=== PATIENT | male | born 1965 | race Caucasian/White ===

== ENCOUNTER → 2020-11-26 13:42 | Outpatient (CLI) | payer OTHER, SELFPAY ==
[2020-11-26 13:58] LABS: Basophils % 0.6 % (0.1-2.0); Eosinophils # 0.1 K/mm3 (0.0-0.4); Eosinophils % 1.3 % (0.1-12.0); Hematocrit 43.9 % (42.0-52.0); Hemoglobin 14.4 g/dL (14.1-18.0); Lymphocytes # 1.3 K/mm3 (0.7-4.5); Lymphocytes % 25.4 % (10-50); Mean Corpuscular HGB Conc 32.8 g/dL (31.8-35.4); Mean Corpuscular Hemoglobin 29.7 pg (27.0-31.2); Mean Corpuscular Volume 90.5 fl (80-94); Monocytes # 0.3 K/mm3 (0.1-1.0); Monocytes % 5.1 % (1.7-9.3); Neutrophils # 3.5 K/mm3 (1.8-7.8); Neutrophils % 67.5 % (37.0-80.0); Platelet Count 356 K/mm3 (142-424); Red Blood Count 4.85 M/mm3 (4.60-6.20); White Blood Count 5.2 K/mm3 (4.8-10.8)
[2020-11-26 14:30] LABS: Chloride 103 mmol/L (98-107); Sodium 140 mmol/L (136-145)
[2020-11-26 14:32] LABS: Blood Urea Nitrogen 22 mg/dl (9-20); Estimated Glomerular Filt Rate 52 ml/min (>60); GFR (African American) 63 ML/MIN (>60)
[2020-11-26 14:33] LABS: Alanine Aminotransferase 33 U/L (12-78); Albumin Level 4.8 g/dl (3.5-5.0); Albumin/Globulin Ratio 1.9 (1.1-1.8); Alkaline Phosphatase 54 U/L (38-126); Aspartate Amino Transferase 31 U/L (17-59); Bilirubin,Total 0.6 mg/dl (0.2-1.3); Calcium 10.1 mg/dl (8.4-10.2); Carbon Dioxide 27 mmol/L (22.0-30.0); Cholesterol 127 mg/dl (140-200); Globulin 2.5 g/dL (1.3-3.2); Glucose 110 mg/dl (74-100); Total Protein,Serum 7.3 g/dl (6.3-8.2); Triglycerides 63 mg/dl (30-150); VLDL Cholesterol 13 mg/dL (0-40)
[2020-11-26 14:34] LABS: Chol/HDL Ratio 3.1 (1-3.5); HDL Cholesterol 41 mg/dl (40-60)
[2020-11-26 14:44] LABS: Direct LDL Cholesterol 64.79 mg/dL (100-129)
[2020-11-26 15:40] LABS: Prostate Specific Ag Screen 0.7 ng/ml (0.0-4.0)
== END ==
PROVIDERS: Visit Provider Family Medicine
DX: Z12.5 Encounter for screening for malignant neoplasm of prostate; Z79.899 Other long term (current) drug therapy; Z00.00 Encounter for general adult medical examination without abnormal findings
CPT/HCPCS: 80053; 80061; 84436; 84443; 85025; G0103

== ENCOUNTER → 2021-08-18 08:10 | Outpatient (CLI) | payer OTHER, SELFPAY ==
--- NOTE | 2021-08-18 08:10 | CT_ITS ---
FINAL REPORT TECHNIQUE: Axial CT images of the abdomen were obtained without contrast. Coronal reformatted images were also obtained.This study was performed with techniques to keep radiation doses as low as reasonably achievable (ALARA). Individualized dose reduction techniques using automated exposure control or adjustment of mA and/or kV according to the patient''s size were employed. CLINICAL HISTORY: ruq pain..pt has pain up under rt rib and at sernum FINDINGS: The lung bases are clear. The liver has an unremarkable appearance, without evidence of mass. The gallbladder appears normal without evidence of gallstones. There is no evidence of biliary ductal dilatation. The pancreas appears normal. The spleen size is within normal limits. There is a less than 3 mm nonobstructing right renal stone. There is an anterior left renal mass measuring 2.1 cm, nonspecific. The appendix appears normal. There is no evidence of adenopathy. No abnormal fluid collection is seen. No localized inflammatory processes identified. IMPRESSION: Anterior left renal mass, nonspecific. Could be further evaluated with a renal mass protocol CT. Reviewed, Interpreted and Dictated by Harpal Armstrong III, MD Transcribed by Socorro Lucero Authenticated by Harpal Armstrong III, MD on 08/18/2021 10:23:37 AM [facility]
--- NOTE | 2021-08-18 08:10 | US_ITS ---
FINAL REPORT CLINICAL HISTORY: ruq pain FINDINGS: Sonographic images of the right upper quadrant were obtained. The pancreas is partially obscured.The liver has an unremarkable appearance. There is a small amount of sludge in the gallbladder with borderline gallbladder wall thickening. There is no evidence of biliary ductal dilatation.The common duct measures 2 mm. Limited images of the right kidney are unremarkable. IMPRESSION: Small amount of sludge in the gallbladder with borderline gallbladder wall thickening. Reviewed, Interpreted and Dictated by Harpal Armstrong III, MD Transcribed by Gerald Johnson Authenticated by Harpal Armstrong III, MD on 08/18/2021 11:54:[address] [facility]
== END ==
PROVIDERS: PCP Family Medicine; Visit Provider Family Medicine
DX: R10.11 Right upper quadrant pain (principal)
CPT/HCPCS: 74150; 76705

== ENCOUNTER → 2022-06-13 15:07 | Outpatient (CLI) | payer OTHER, SELFPAY ==
--- NOTE | 2022-06-13 15:09 | CA_ITS ---
FINAL REPORT TECHNIQUE: Ultrasound images of the deep venous system were obtained from the left groin to the calf veins. CLINICAL HISTORY: LLE PAIN,NKI FINDINGS: The deep venous system is normally compressible. Normal flow is identified. IMPRESSION: No evidence of left lower extremity DVT. Reviewed, Interpreted and Dictated by Huy Velez MD Transcribed by Gerald Johnson Authenticated and [facility]
== END ==
PROVIDERS: PCP Family Medicine; Visit Provider Family Medicine
DX: R06.02 Shortness of breath (principal); M79.605 Pain in left leg; Z82.49 Family history of ischemic heart disease and other diseases of the circulatory system; Z86.72 Personal history of thrombophlebitis
CPT/HCPCS: 93971

== ENCOUNTER → 2022-06-18 08:40 | Outpatient (CLI) | payer OTHER, SELFPAY ==
[2022-06-18 09:08] LABS: Basophils # 0.1 K/mm3 (0-0.2); Basophils % 1.1 % (0.1-2.0); Eosinophils # 0.2 K/mm3 (0.0-0.4); Eosinophils % 3.5 % (0.1-12.0); Hematocrit 44.7 % (42.0-52.0); Lymphocytes # 1.4 K/mm3 (0.7-4.5); Lymphocytes % 24.9 % (10-50); Mean Corpuscular HGB Conc 33.6 g/dL (31.8-35.4); Mean Corpuscular Hemoglobin 30.2 pg (27.0-31.2); Mean Corpuscular Volume 89.9 fl (80-94); Mean Platelet Volume 8.1 fl (7.4-10.4); Monocytes # 0.2 K/mm3 (0.1-1.0); Monocytes % 4.1 % (1.7-9.3); Neutrophils # 3.7 K/mm3 (1.8-7.8); Neutrophils % 66.3 % (37.0-80.0); Platelet Count 346 K/mm3 (142-424); Red Blood Count 4.97 M/mm3 (4.60-6.20); Red Cell Distribution Width 13.1 % (11.5-17.5); White Blood Count 5.6 K/mm3 (4.8-10.8)
[2022-06-18 09:16] LABS: INR 0.96 (0.9-1.1); Prothrombin Time 10.4 seconds (10.1-12.5)
[2022-06-18 09:47] LABS: Chloride 103 mmol/L (98-107); Potassium 4.6 mmoL/L (3.5-5.1); Sodium 142 mmol/L (136-145)
[2022-06-18 09:50] LABS: Alanine Aminotransferase 39 U/L (12-78); Albumin Level 4.4 g/dl (3.5-5.0); Albumin/Globulin Ratio 1.7 (1.1-1.8); Alkaline Phosphatase 62 U/L (38-126); Anion Gap 14.6 mEq/L (5-15); Aspartate Amino Transferase 33 U/L (17-59); Bilirubin,Total 0.5 mg/dl (0.2-1.3); Blood Urea Nitrogen 15 mg/dl (9-20); Carbon Dioxide 29 mmol/L (22.0-30.0); Estimated Glomerular Filt Rate 57 ml/min (>60); GFR (African American) 68 ML/MIN (>60); Globulin 2.6 g/dL (1.3-3.2)
[2022-06-18 09:51] LABS: Calcium 10.1 mg/dl (8.4-10.2); Glucose 108 mg/dl (74-100)
[2022-06-18 10:22] LABS: Thyroid Stimulating Hormone 1.24 uIU/mL (0.465-4.68)
[2022-06-19 14:51] LABS: Homocyst(e)ine 17.9 umol/L (0.0-14.5)
[2022-06-21 17:09] LABS: Anti-Thrombin III Antigen 84 % (72-124); Antithrombin Activity 104 % (75-135); Factor VIII Activity 148 % (56-140); Protein C Functional 162 % (73-180); Protein S, Free 105 % (61-136); Protein S, Total 117 % (60-150); Protein S-Functional 107 % (63-140)
[2022-06-23 05:22] LABS: Protein C Antigen 134 % (60-150)
== END ==
PROVIDERS: PCP Family Medicine; Visit Provider Family Medicine
DX: R06.02 Shortness of breath (principal); Z82.49 Family history of ischemic heart disease and other diseases of the circulatory system; Z86.72 Personal history of thrombophlebitis
CPT/HCPCS: 36415; 80053; 81241; 83090; 84443; 85025; 85240; 85300; 85301; 85302; 85305; 85306; 85610; 86148

== ENCOUNTER → 2022-11-02 15:58 | Outpatient (CLI) | payer OTHER, SELFPAY ==
[2022-11-02 18:41] LABS: Alanine Aminotransferase 32 U/L (12-78); Albumin Level 4.8 g/dl (3.5-5.0); Albumin/Globulin Ratio 1.9 (1.1-1.8); Alkaline Phosphatase 63 U/L (38-126); Aspartate Amino Transferase 30 U/L (17-59); Bilirubin,Total 0.7 mg/dl (0.2-1.3); Blood Urea Nitrogen 19 mg/dl (9-20); Calcium 9.6 mg/dl (8.4-10.2); Carbon Dioxide 28 mmol/L (22.0-30.0); Chloride 101 mmol/L (98-107); Chol/HDL Ratio 4.1 (1-3.5); Cholesterol 171 mg/dl (140-200); Estimated Glomerular Filt Rate 57 ml/min (>60); GFR (African American) 68 ML/MIN (>60); Globulin 2.5 g/dL (1.3-3.2); Glucose 108 mg/dl (74-100); HDL Cholesterol 42 mg/dl (40-60); Sodium 139 mmol/L (136-145); Total Protein,Serum 7.3 g/dl (6.3-8.2); Triglycerides 140 mg/dl (30-150); VLDL Cholesterol 28 mg/dL (0-40)
[2022-11-02 18:52] LABS: Direct LDL Cholesterol 91.74 mg/dL (100-129)
[2022-11-02 20:50] LABS: Hemoglobin A1C 5.6 % (4.0-6.0)
== END ==
PROVIDERS: PCP Family Medicine; Visit Provider Family Medicine
DX: Z13.1 Encounter for screening for diabetes mellitus (principal); Z79.899 Other long term (current) drug therapy
CPT/HCPCS: 80053; 80061; 83036

== ENCOUNTER → 2023-03-29 12:00 | Outpatient (CLI) | payer OTHER, SELFPAY ==
[2023-03-29 18:43] LABS: MANUAL DIFFERENTIAL MANUAL DIFFERENTIAL (MANUAL DIFF)
[2023-03-29 19:39] LABS: Alanine Aminotransferase 25 U/L (12-78); Albumin Level 4.6 g/dl (3.5-5.0); Albumin/Globulin Ratio 1.8 (1.1-1.8); Alkaline Phosphatase 63 U/L (38-126); Anion Gap 14.4 mEq/L (5-15); Aspartate Amino Transferase 24 U/L (17-59); Bilirubin,Total 0.2 mg/dl (0.2-1.3); Blood Urea Nitrogen 20 mg/dl (9-20); Calcium 9.8 mg/dl (8.4-10.2); Carbon Dioxide 29 mmol/L (22.0-30.0); Chloride 103 mmol/L (98-107); Estimated Glomerular Filt Rate 56 ml/min (>60); GFR (African American) 68 ML/MIN (>60); Globulin 2.6 g/dL (1.3-3.2); Glucose 121 mg/dl (74-100); Potassium 4.4 mmoL/L (3.5-5.1); Sodium 142 mmol/L (136-145); Total Protein,Serum 7.2 g/dl (6.3-8.2)
[2023-03-29 20:02] LABS: Basophils % 0.4 % (0.1-2.0); Eosinophils # 0.1 K/mm3 (0.0-0.4); Eosinophils % 2.5 % (0.1-12.0); Hematocrit 42.8 % (42.0-52.0); Hemoglobin 13.9 g/dL (14.1-18.0); Lymphocytes # 1.3 K/mm3 (0.7-4.5); Lymphocytes % 31.1 % (10-50); Mean Corpuscular HGB Conc 32.6 g/dL (31.8-35.4); Mean Corpuscular Hemoglobin 29.6 pg (27.0-31.2); Mean Corpuscular Volume 90.8 fl (80-94); Mean Platelet Volume 8.9 fl (7.4-10.4); Monocytes # 0.3 K/mm3 (0.1-1.0); Monocytes % 5.8 % (1.7-9.3); Neutrophils # 2.6 K/mm3 (1.8-7.8); Neutrophils % 60.3 % (37.0-80.0); Platelet Count 308 K/mm3 (142-424); Red Blood Count 4.71 M/mm3 (4.60-6.20); White Blood Count 4.2 K/mm3 (4.8-10.8)
[2023-03-29 20:27] LABS: Vitamin B12 310 pg/mL (239-931)
[2023-03-29 22:51] LABS: Erythrocyte Sedimentation Rate 5 mm/hr (0-20)
[2023-03-29 23:02] LABS: Eosinophils % 4 % (0-3); Lymphocytes % 41 % (10-50); Monocytes % 4 % (2-9); Neutrophils % 51 % (42-76); Total Cells Counted 100
[2023-03-29 23:03] LABS: Platelet Estimate Normal; RBC Morphology Normal
== END ==
LOC: LAB.DROPOF 03-30 00:15
PROVIDERS: PCP Family Medicine; Visit Provider Family Medicine
DX: M79.605 Pain in left leg (principal)
CPT/HCPCS: 80053; 82607; 85007; 85014; 85018; 85048; 85049; 85651

== ENCOUNTER → 2023-04-25 16:57 | Outpatient (CLI) | payer OTHER, SELFPAY ==
--- NOTE | 2023-04-25 16:57 | MR_ITS ---
PROCEDURE INFORMATION: Exam: MR Lumbar Spine Without Contrast Exam date and time: 04/25/2023 4:56 PM Age: 58 years old Clinical indication: Low back pain; Additional info: Lower back pain TECHNIQUE: Imaging protocol: Magnetic resonance imaging of the lumbar spine without contrast. COMPARISON: CT ABDOMEN WO CON 08/18/2021 8:41 AM FINDINGS: Bones/joints: Minimal L5-S1 retrolisthesis measuring 4 mm. Vertebral body heights are maintained. There is type 1 endplate degenerative changes present at L5-S1. No suspicious marrow signal. Spinal cord: Visualized cord, conus medullaris and cauda equina are unremarkable without compression. L1-L2: No significant disc bulge or herniation. No severe spinal canal stenosis. No significant neural foraminal narrowing. L2-L3: No significant disc bulge or herniation. No severe spinal canal stenosis. No significant neural foraminal narrowing. L3-L4: No significant disc bulge or herniation. No severe spinal canal stenosis. No significant neural foraminal narrowing. L4-L5: L4-L5 minimal diffuse disc bulging is seen without stenosis of the spinal canal. There is mild bilateral degenerative facet arthrosis also present. The left neural foramina is mildly narrowed. L5-S1: L5-S1 minimal central focal disc protrusion is seen with diffuse disc bulging. The spinal canal is patent. There is minimal bilateral facet arthrosis. The right neural foramina is mildly narrowed. Soft tissues: Unremarkable. IMPRESSION: Mild L5-S1 degenerative disc disease without significant spinal canal stenosis, as described.
== END ==
PROVIDERS: PCP Family Medicine; Visit Provider Family Medicine
DX: M54.9 Dorsalgia, unspecified (principal); M79.605 Pain in left leg
CPT/HCPCS: 72148; 76376

== ENCOUNTER 2023-09-27 19:02 | Outpatient (CLI) | payer OTHER, SELFPAY ==
[2023-09-27 18:13] LABS: Basophils % 0.3 % (0.1-2.0); Eosinophils # 0.1 K/mm3 (0.0-0.4); Eosinophils % 0.8 % (0.1-12.0); Hematocrit 43.9 % (42.0-52.0); Hemoglobin 14.3 g/dL (14.1-18.0); Lymphocytes # 1.7 K/mm3 (0.7-4.5); Lymphocytes % 25.3 % (10-50); Mean Corpuscular HGB Conc 32.6 g/dL (31.8-35.4); Mean Corpuscular Hemoglobin 31.2 pg (27.0-31.2); Mean Corpuscular Volume 95.5 fl (80-94); Mean Platelet Volume 9.5 fl (7.4-10.4); Monocytes # 0.4 K/mm3 (0.1-1.0); Monocytes % 5.7 % (1.7-9.3); Neutrophils # 4.6 K/mm3 (1.8-7.8); Platelet Count 368 K/mm3 (142-424); White Blood Count 6.8 K/mm3 (4.8-10.8)
[2023-09-27 18:22] LABS: Alanine Aminotransferase 25 U/L (12-78); Albumin Level 4.4 g/dl (3.5-5.0); Albumin/Globulin Ratio 1.8 (1.1-1.8); Alkaline Phosphatase 62 U/L (38-126); Anion Gap 10.4 mEq/L (5-15); Aspartate Amino Transferase 27 U/L (17-59); Bilirubin,Total 0.5 mg/dl (0.2-1.3); Blood Urea Nitrogen 20 mg/dl (9-20); Calcium 9.7 mg/dl (8.4-10.2); Carbon Dioxide 29 mmol/L (22.0-30.0); Chloride 106 mmol/L (98-107); Chol/HDL Ratio 5.7 (1-3.5); Cholesterol 224 mg/dl (140-200); Estimated Glomerular Filt Rate 62 ml/min (>60); GFR (African American) 75 ML/MIN (>60); Globulin 2.5 g/dL (1.3-3.2); Glucose 107 mg/dl (74-100); HDL Cholesterol 39 mg/dl (40-60); Potassium 4.4 mmoL/L (3.5-5.1); Sodium 141 mmol/L (136-145); Total Protein,Serum 6.9 g/dl (6.3-8.2); Triglycerides 125 mg/dl (30-150); VLDL Cholesterol 25 mg/dL (0-40)
[2023-09-27 18:33] LABS: Direct LDL Cholesterol 124.51 mg/dL (100-129)
[2023-09-27 18:52] LABS: Thyroid Stimulating Hormone 1.69 uIU/mL (0.465-4.68)
[2023-09-27 21:17] LABS: Hemoglobin A1C 5.6 % (4.0-6.0)
== END 2023-09-27 23:59 | disposition home or self-care (01) ==
LOC: LAB.DROPOF 19:02
PROVIDERS: PCP Family Medicine; Visit Provider Family Medicine
DX: Z00.00 Encounter for general adult medical examination without abnormal findings (principal); Z79.899 Other long term (current) drug therapy
CPT/HCPCS: 80053; 80061; 83036; 84443; 85025

== ENCOUNTER 2024-04-04 16:50 | Outpatient (CLI) | payer OTHER, SELFPAY ==
[2024-04-04 19:37] LABS: C-Reactive Protein 18.6 mg/L (0-4)
[2024-04-04 20:01] LABS: Prostate Specific Ag Screen 1.8 ng/ml (0.0-4.0)
[2024-04-04 20:09] LABS: Erythrocyte Sedimentation Rate 19 mm/hr (0-20)
[2024-04-06 08:18] LABS: Testosterone,Total 377 ng/dL (264-916)
== END 2024-04-04 23:59 | disposition home or self-care (01) ==
LOC: LAB.DROPOF 04-05 10:21
PROVIDERS: PCP Family Medicine; Visit Provider Family Medicine
DX: E78.5 Hyperlipidemia, unspecified (principal)
CPT/HCPCS: 84403; 85651; 86140; G0103

== ENCOUNTER 2024-06-28 09:25 | Outpatient (CLI) | payer OTHER, SELFPAY ==
[2024-06-28 19:00] LABS: Uric Acid 1.9 mg/dl (3.5-8.5)
[2024-06-28 19:11] LABS: C-Reactive Protein 1.1 mg/L (0-4)
[2024-06-30 08:12] LABS: RA Latex Turbid. <10.0 IU/mL (<14.0)
[2024-07-02 19:08] LABS: Antinuclear Antibodies, IFA Negative (.)
== END 2024-06-28 23:59 | disposition home or self-care (01) ==
LOC: LAB.DROPOF 07-01 09:25
PROVIDERS: PCP Family Medicine; Visit Provider Family Medicine
DX: M54.9 Dorsalgia, unspecified (principal)
CPT/HCPCS: 84550; 86038; 86140; 86431

== ENCOUNTER 2024-11-20 10:00 | Outpatient (CLI) | payer OTHER, SELFPAY ==
[2024-11-20 19:16] LABS: Albumin Level 4.2 g/dl (3.5-5.0); Chloride 104 mmol/L (98-107); Potassium 4.9 mmoL/L (3.5-5.1); Sodium 141 mmol/L (136-145)
[2024-11-20 19:18] LABS: Blood Urea Nitrogen 21 mg/dl (9-20); Estimated Glomerular Filt Rate 52 ml/min (>60); GFR (African American) 62 ML/MIN (>60)
[2024-11-20 19:19] LABS: Alanine Aminotransferase 34 U/L (12-78); Albumin/Globulin Ratio 1.6 (1.1-1.8); Alkaline Phosphatase 47 U/L (38-126); Anion Gap 11.9 mEq/L (5-15); Aspartate Amino Transferase 30 U/L (17-59); Bilirubin,Total 0.6 mg/dl (0.2-1.3); Carbon Dioxide 30 mmol/L (22.0-30.0); Chol/HDL Ratio 3.3 (1-3.5); Cholesterol 164 mg/dl (140-200); Globulin 2.7 g/dL (1.3-3.2); HDL Cholesterol 50 mg/dl (40-60); Total Protein,Serum 6.9 g/dl (6.3-8.2); Triglycerides 83 mg/dl (30-150); VLDL Cholesterol 17 mg/dL (0-40)
[2024-11-20 19:25] LABS: Calcium 10.6 mg/dl (8.4-10.2); Glucose 111 mg/dl (74-100)
[2024-11-20 19:30] LABS: Direct LDL Cholesterol 89.93 mg/dL (100-129)
== END 2024-11-20 23:59 | disposition home or self-care (01) ==
LOC: LAB.DROPOF 11-21 10:54
PROVIDERS: PCP Family Medicine; Visit Provider Family Medicine
DX: Z00.00 Encounter for general adult medical examination without abnormal findings (principal)
CPT/HCPCS: 80053; 80061